=== PATIENT | male | born 1960 | race Caucasian/White ===

== ENCOUNTER 2020-12-20 08:11 | Outpatient (REF) | payer BC, SELFPAY ==
[2020-12-20 09:06] LABS: Glucose Urine UA NEG (NEG); Leukocyte Esterase Urine NEG (NEG); Nitrite Urine NEG (NEG); PH 5.5 (5.0-8.0); Specific Gravity - Urine >= 1.030 (1.005-1.025); Urine Blood NEG (NEG); Urine Ketones NEG (NEG); Urine Protein NEG (NEG-TRACE)
[2020-12-20 09:09] LABS: Appearance Urine HAZY; Color Urine YELLOW
[2020-12-20 09:12] LABS: Hematocrit 43.5 % (42-52); Mean Corpuscular HGB Conc 34.5 g/dl (31.0-36.0); Mean Corpuscular Hemoglobin 31.7 pg (27.0-33.0); Mean Platelet Volume 10.7 fL (9.4-12.4); Platelet Count 225 X10*3/uL (160-400); Red Blood Count 4.73 X10*6/uL (4.60-5.80); Red Cell Distribution Width 12.4 % (11.0-16.0); White Blood Count 6.4 X10*3/uL (4.8-10.8)
[2020-12-20 09:26] LABS: Alanine Aminotransferase 33 U/L (0-40); Albumin Level 4.4 g/dL (3.5-5.0); Alkaline Phosphatase 87 U/L (39-117); Anion Gap 12 (12-20); Aspartate Amino Transferase 23 U/L (5-37); Bilirubin Total 0.6 mg/dL (0.0-1.0); Blood Urea Nitrogen 17 mg/dL (9-16); Calcium 8.6 mg/dL (8.4-10.2); Carbon Dioxide 28 mmol/L (22-29); Chloride 107 mmol/L (96-108); Cholesterol 224 mg/dL; Estimated Glomerular Filt Rate > 60; Glucose Fasting 116 mg/dL (60-99); HDL Cholesterol 48 mg/dL; LDL Cholesterol Calculated 156 mg/dl; Potassium 4.5 mmol/L (3.3-5.1); Sodium 142 mmol/L (135-145); Total Protein 6.7 g/dL (6.5-8.0); Triglycerides 101 mg/dL
[2020-12-20 09:46] LABS: Estimated Average Glucose 120 mg/dL; Hemoglobin A1c % 5.8 %
[2020-12-20 09:58] LABS: Prostate Specific Antigen 0.13 ng/mL (<0.05-4.0)
[2020-12-20 18:32] LABS: MANUAL DIFF FLAG NO
[2020-12-20 18:35] LABS: Basophils Absolute Auto 0.1 X10*3/uL (0.0-0.2); Basophils Percent Auto 1.4 % (0-2); Eosinophils Absolute Auto 0.5 X10*3/uL (0.0-0.4); Eosinophils Percent Auto 7.1 % (0-4); Imm Gran Abs Auto 0.03 X10*3/uL (0.00-0.03); Imm Gran Pct Auto 0.5 % (0.0-0.4); Lymphocytes Percent Auto 29.9 % (20-40); Monocytes Absolute Auto 0.6 X10*3/uL (0.1-1.2); Monocytes Percent Auto 8.4 % (2-11); Neutrophils Absolute Auto 3.4 X10*3/uL (2.0-8.3); Neutrophils Percent Auto 52.7 % (45-73)
== END 2020-12-20 08:12 | disposition home or self-care (01) ==
LOC: HO.LAB 08:11
PROVIDERS: PCP Internal Medicine; Visit Provider Internal Medicine
DX: Z00.00 Encounter for general adult medical examination without abnormal findings (principal); R73.9 Hyperglycemia, unspecified; N40.0 Benign prostatic hyperplasia without lower urinary tract symptoms
CPT/HCPCS: 36415; 80053; 80061; 81003; 83036; 84153; 85025; 85027

== ENCOUNTER → 2021-03-30 08:34 | Outpatient (BNVA) | payer BC, SELFPAY | PROVIDERS: PCP Internal Medicine; Visit Provider Urology ==

== ENCOUNTER 2021-05-11 15:00 | Outpatient (REF) | payer BC, SELFPAY ==
[2021-05-11 15:07] LABS: MANUAL DIFF FLAG NO
[2021-05-11 15:13] LABS: Basophils Absolute Auto 0.1 X10*3/uL (0.0-0.2); Basophils Percent Auto 1.1 % (0-2); Eosinophils Absolute Auto 0.5 X10*3/uL (0.0-0.4); Hematocrit 42.9 % (42-52); Hemoglobin 14.7 g/dl (14.0-18.0); Imm Gran Abs Auto 0.02 X10*3/uL (0.00-0.03); Imm Gran Pct Auto 0.3 % (0.0-0.4); Lymphocytes Absolute Auto 1.9 X10*3/uL (1.2-4.9); Lymphocytes Percent Auto 30.1 % (20-40); Mean Corpuscular HGB Conc 34.3 g/dl (31.0-36.0); Mean Corpuscular Hemoglobin 31.5 pg (27.0-33.0); Mean Corpuscular Volume 92.1 fL (80-98); Mean Platelet Volume 11.5 fL (9.4-12.4); Monocytes Absolute Auto 0.5 X10*3/uL (0.1-1.2); Monocytes Percent Auto 7.3 % (2-11); Neutrophils Absolute Auto 3.5 X10*3/uL (2.0-8.3); Neutrophils Percent Auto 54.2 % (45-73); Platelet Count 223 X10*3/uL (160-400); Red Blood Count 4.66 X10*6/uL (4.60-5.80); Red Cell Distribution Width 12.8 % (11.0-16.0); White Blood Count 6.4 X10*3/uL (4.8-10.8)
[2021-05-11 15:53] LABS: Thyroid Stimulating Hormone 2.32 uIU/mL (0.32-4.0)
[2021-05-12 08:41] LABS: Lyme Abs Screen <0.90 index
[2021-05-22 11:37] LABS: Babesia IgG <1:64 titer (<1:64); Babesia IgM <1:20 titer (<1:20)
[2021-05-30 01:37] LABS: A. Phagocytophilum Ab IgG <1:64 (<1:64); A. Phagocytophilum Ab IgM <1:20 (<1:20); E. Chaffeensis Ab IgG <1:64 (<1:64); E. Chaffeensis Ab IgM <1:20 (<1:20)
== END 2021-05-11 15:01 | disposition home or self-care (01) ==
LOC: HO.LNP 15:00
PROVIDERS: Visit Provider Internal Medicine
DX: M25.522 Pain in left elbow (principal); M79.10 Myalgia, unspecified site
CPT/HCPCS: 84443; 85025; 86617; 86618; 86666; 86753

== ENCOUNTER 2021-12-29 11:43 | Outpatient (REF) | payer BC, SELFPAY ==
[2021-12-29 11:47] LABS: MANUAL DIFF FLAG NO
[2021-12-29 12:23] LABS: Basophils Absolute Auto 0.1 X10*3/uL (0.0-0.2); Basophils Percent Auto 1.6 % (0-2); Eosinophils Absolute Auto 0.7 X10*3/uL (0.0-0.4); Eosinophils Percent Auto 12.1 % (0-4); Hematocrit 43.2 % (42.0-52.0); Hemoglobin 14.5 g/dl (14.0-18.0); Imm Gran Abs Auto 0.01 X10*3/uL (0.00-0.03); Imm Gran Pct Auto 0.2 % (0.0-0.4); Lymphocytes Absolute Auto 1.7 X10*3/uL (1.2-4.9); Lymphocytes Percent Auto 29.2 % (20-40); Mean Corpuscular HGB Conc 33.6 g/dl (31.0-36.0); Mean Corpuscular Hemoglobin 30.9 pg (27.0-33.0); Mean Corpuscular Volume 92.1 fL (80.0-98.0); Mean Platelet Volume 11.4 fL (9.4-12.4); Monocytes Absolute Auto 0.4 X10*3/uL (0.1-1.2); Monocytes Percent Auto 7.6 % (2-11); Neutrophils Absolute Auto 2.9 x10*3/uL (2.0-8.3); Neutrophils Percent Auto 49.3 % (45-73); Platelet Count 216 X10*3/uL (160-400); Red Blood Count 4.69 X10*6/uL (4.60-5.80); Red Cell Distribution Width 12.8 % (11.0-16.0); White Blood Count 5.8 X10*3/uL (4.8-10.8)
[2021-12-29 12:40] LABS: Alanine Aminotransferase 31 U/L (0-40); Albumin Level 4.2 g/dL (3.5-5.0); Alkaline Phosphatase 81 U/L (39-117); Anion Gap 10 (12-20); Aspartate Amino Transferase 23 U/L (5-37); Bilirubin Total 0.7 mg/dL (0.0-1.0); Blood Urea Nitrogen 20 mg/dL (9-16); Calcium 8.9 mg/dL (8.4-10.2); Carbon Dioxide 25 mmol/L (22-29); Chloride 108 mmol/L (96-108); Cholesterol 197 mg/dL; Estimated Glomerular Filt Rate > 60; Glucose Fasting 126 mg/dL (60-99); HDL Cholesterol 43 mg/dL; LDL Cholesterol Calculated 135 mg/dl; Sodium 139 mmol/L (135-145); Total Protein 6.4 g/dL (6.5-8.0); Triglycerides 96 mg/dL
[2021-12-29 12:49] LABS: Appearance Urine CLEAR; Color Urine YELLOW; Glucose Urine UA NEG (NEG); Leukocyte Esterase Urine NEG (NEG); Nitrite Urine NEG (NEG); PH 5.5 (5.0-8.0); Specific Gravity - Urine >= 1.030 (1.005-1.025); Urine Blood NEG (NEG); Urine Ketones NEG (NEG); Urine Protein NEG (NEG-TRACE)
[2021-12-29 13:01] LABS: PSA,Total (Free>4and<10) 0.14 ng/mL (0.00-4.00)
[2022-01-05 14:16] LABS: Testosterone, Free 50.2 pg/mL (35.0-155.0); Testosterone, Total 290 ng/dL (250-1100)
== END 2021-12-29 11:44 | disposition home or self-care (01) ==
LOC: HO.LNP 11:43
PROVIDERS: Visit Provider Internal Medicine
DX: Z00.00 Encounter for general adult medical examination without abnormal findings (principal); Z12.5 Encounter for screening for malignant neoplasm of prostate; N40.0 Benign prostatic hyperplasia without lower urinary tract symptoms; E34.9 Endocrine disorder, unspecified
CPT/HCPCS: 80053; 80061; 81003; 84153; 84402; 84403; 85025

== ENCOUNTER 2022-05-17 10:10 | Outpatient (REF) | payer BC, SELFPAY ==
--- NOTE | ~2022-05-17 | XR_ITS ---
EXAMINATION: XR CHEST CLINICAL INFORMATION: Chronic cough COMPARISON: Previous chest x-ray December 2007 TECHNIQUE: 2 views of the chest were obtained. FINDINGS: The cardiac silhouette does not appear enlarged. There is change in contour of the paraspinal line questionable for tortuosity or mild ectasia of the descending thoracic aorta versus posterior mediastinal etiology. Hilar and mediastinal contours are otherwise unremarkable. The lungs are clear. There is no pleural effusion or pneumothorax. There are degenerative changes of the spine. XR/XR chest 2V IMPRESSION: Changing contour of the paraspinal line, question representing tortuosity or ectasia of the descending thoracic aorta versus posterior mediastinal etiology. This could be further evaluated with chest CT if clinically indicated.
== END 2022-05-17 10:11 | disposition home or self-care (01) ==
LOC: HO.XRAY 10:10
PROVIDERS: PCP Internal Medicine; Visit Provider Internal Medicine
DX: R05.3 Chronic cough (principal)
CPT/HCPCS: 71046

== ENCOUNTER 2022-11-02 11:14 | Outpatient (REF) | payer BC, SELFPAY ==
[2022-11-02 13:47] LABS: Estimated Average Glucose 111 mg/dL; Hemoglobin A1c % 5.5 %
[2022-11-02 14:41] LABS: Anion Gap 12 (12-20); Blood Urea Nitrogen 17 mg/dL (9-16); Calcium 9.2 mg/dL (8.4-10.2); Carbon Dioxide 26 mmol/L (22-29); Chloride 107 mmol/L (96-108); Estimated Glomerular Filt Rate > 60; Glucose Random 105 mg/dL (60-115); Potassium 4.3 mmol/L (3.3-5.1); Sodium 141 mmol/L (135-145)
== END 2022-11-02 11:15 | disposition home or self-care (01) ==
LOC: HO.10HDL 11:14
PROVIDERS: Visit Provider Internal Medicine
DX: R73.03 Prediabetes (principal)
CPT/HCPCS: 36415; 80048; 83036

== ENCOUNTER 2023-05-13 11:34 | Outpatient (REF) | payer BC, SELFPAY | END 2023-05-13 11:35 | disposition home or self-care (01) | LOC: HO.LNP 11:34 | PROVIDERS: Visit Provider Internal Medicine | DX: Z00.00 Encounter for general adult medical examination without abnormal findings (principal); Z12.5 Encounter for screening for malignant neoplasm of prostate; N40.0 Benign prostatic hyperplasia without lower urinary tract symptoms; E34.9 Endocrine disorder, unspecified | CPT/HCPCS: 80053; 80061; 81001; 84153; 85025 ==

== ENCOUNTER 2024-05-18 11:36 | Outpatient (REF) | payer BC, SELFPAY ==
[2024-05-18 11:40] LABS: MANUAL DIFF FLAG NO
[2024-05-18 11:54] LABS: Basophils Absolute Auto 0.1 X10*3/uL (0.0-0.2); Basophils Percent Auto 0.9 % (0-2); Eosinophils Absolute Auto 0.3 X10*3/uL (0.0-0.4); Eosinophils Percent Auto 5.2 % (0-4); Hematocrit 42.2 % (42.0-52.0); Hemoglobin 14.3 g/dl (14.0-18.0); Imm Gran Abs Auto 0.02 X10*3/uL (0.00-0.03); Imm Gran Pct Auto 0.3 % (0.0-0.4); Lymphocytes Absolute Auto 2.1 X10*3/uL (1.2-4.9); Lymphocytes Percent Auto 35.9 % (20-40); Mean Corpuscular HGB Conc 33.9 g/dl (31.0-36.0); Mean Corpuscular Hemoglobin 31.7 pg (27.0-33.0); Mean Corpuscular Volume 93.6 fL (80.0-98.0); Mean Platelet Volume 11.5 fL (9.4-12.4); Monocytes Absolute Auto 0.5 X10*3/uL (0.1-1.2); Monocytes Percent Auto 8.2 % (2-11); Neutrophils Absolute Auto 2.8 x10*3/uL (2.0-8.3); Neutrophils Percent Auto 49.5 % (45-73); Platelet Count 200 X10*3/uL (160-400); Red Blood Count 4.51 X10*6/uL (4.60-5.80); Red Cell Distribution Width 12.9 % (11.0-16.0); White Blood Count 5.7 X10*3/uL (4.8-10.8)
[2024-05-18 11:57] LABS: Appearance Urine Clear; Color Urine Dark Yellow; Glucose Urine UA Negative (Negative); Leukocyte Esterase Urine Negative (Negative); Nitrite Urine Negative (Negative); PH 5.5 (5.0-9.0); Specific Gravity - Urine >= 1.030 (1.005-1.025); Urine Blood Negative (Negative); Urine Ketones Trace mg/dL (Negative); Urine Protein Negative (Neg-Trace)
[2024-05-18 12:02] LABS: Bacteria Urine None Seen (None Seen); Hyaline Casts Urine 0-2 /LPF (0-2); RBC Urine 0-2 /HPF (0-2); Squamous Epithelial Cell Urine 0-2 /HPF (0-2); WBC Urine 0-5 /HPF (0-5)
[2024-05-18 12:08] LABS: Alanine Aminotransferase 30 U/L (0-40); Albumin Level 4.2 g/dL (3.5-5.0); Alkaline Phosphatase 84 U/L (39-117); Anion Gap 13 (12-20); Aspartate Amino Transferase 21 U/L (5-37); Bilirubin Total 0.7 mg/dL (0.0-1.0); Blood Urea Nitrogen 20 mg/dL (9-16); Calcium 8.7 mg/dL (8.4-10.2); Carbon Dioxide 26 mmol/L (22-29); Chloride 106 mmol/L (96-108); Cholesterol 189 mg/dL (<200); Estimated Glomerular Filt Rate > 60; Glucose Fasting 115 mg/dL (60-99); HDL Cholesterol 46 mg/dL (>40); LDL Cholesterol Calculated 115 mg/dL (<100); Potassium 3.6 mmol/L (3.3-5.1); Sodium 141 mmol/L (135-145); Total Protein 6.6 g/dL (6.5-8.0); Triglycerides 141 mg/dL (<150)
[2024-05-18 12:26] LABS: PSA,Total (Free>4and<10) 0.14 ng/mL (0.00-4.00)
[2024-05-22 20:03] LABS: Testosterone, Total 351 ng/dL (250-1100)
== END 2024-05-18 11:37 | disposition home or self-care (01) ==
LOC: HO.LNP 11:36
PROVIDERS: Visit Provider Internal Medicine
DX: Z00.00 Encounter for general adult medical examination without abnormal findings (principal); N40.0 Benign prostatic hyperplasia without lower urinary tract symptoms; E34.9 Endocrine disorder, unspecified; Z12.5 Encounter for screening for malignant neoplasm of prostate
CPT/HCPCS: 80053; 80061; 81001; 84153; 84402; 84403; 85025

== ENCOUNTER 2024-06-18 12:00 | Outpatient (REF) | payer BC, SELFPAY ==
--- NOTE | ~2024-06-18 | XR_ITS ---
EXAMINATION: XR SHOULDER, RIGHT CLINICAL INFORMATION: Pain and unspecified shoulder. COMPARISON: None available. TECHNIQUE: AP external rotation, Grashey, and axillary views of the right shoulder. FINDINGS: -The bones and soft tissues are normal. No fracture. Glenohumeral and acromioclavicular alignment is anatomic with normal joint space. Mild arthritis noted in the AC joint. Minimal degenerative arthritis noted glenohumeral joint. -Neutral acromion. Preserved subacromial space. -Soft tissues appear normal. No calcifications. XR/XR shoulder RT min 2V IMPRESSION: 1. No acute findings right shoulder. 2. Mild arthritis glenohumeral and AC joint. Electronically signed by: Jm Cruz MD 08/10/2024 03:37 PM EDT
== END 2024-06-18 12:01 | disposition home or self-care (01) ==
LOC: HO.HOSX 12:00
PROVIDERS: Visit Provider Orthopaedic Surgery
DX: M75.51 Bursitis of right shoulder (principal)
CPT/HCPCS: 73030

== ENCOUNTER 2024-06-18 13:40 | Outpatient (AMB) | payer BC, SELFPAY ==
--- NOTE | 2024-06-18 13:57 | MHC.OFFVIS ---
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 Patient reports that he has had ongoing shoulder pain for about 3 weeks now. Denies any injury. His pain is felt with lateral raising above the shoulder and some mild pain with lifting. He does ot have symptoms when raiding the arm in the front or back of the body. Denies numbness and tingling. He will occasionally take Ibuprofen, Allergies ENVIROMENTAL Allergy (Mild, Uncoded 01/13/22 11:58) HAYFEVER animal fur Allergy (Unknown, Uncoded 01/13/22 11:58) sore throat pollen Allergy (Unknown, Uncoded 01/13/22 11:58) sneezing HPI HPI PR MANAGER- Rt shoulder, rotator cuff pain: Details: This is a 64 yo with ~ 3 week history of right shoulder pain. He denies injury. He states he has pain aith reaching and occasionally at night. He localizes the pain to his right subdeltoid region. He is RHD. PFSH Medical History (Updated 06/19/24 @ 09:18 by Dru Alicea MD) Hypogonadism in male BPH w/o urinary obs/LUTS History of kidney stones Surgical History (Updated 06/27/23 @ 12:07 by GIANLUCA Garrison) Hx of colonoscopy Family History (Updated 06/27/23 @ 12:02 by GIANLUCA Garrison) Father No problems noted. Mother Alzheimer disease Social History (Updated 06/18/24 @ 14:06 by Eileen Hernandez [facility]) Alcohol intake: never Patient Tobacco Use Status: Never used Tobacco Substance Use Type: Caffiene Current occupational status: employed Current occupation: Corporate Representative Physical Exam Extrem Other: Full ROM neg EC + Vásquez/Neer Results Reviewed Results Reviewed: I personally reviewed relevant radiographs. Very mild GH OA, otherwise unremarkable Assessment & Plan Assessment & Plan (1) Shoulder bursitis: Code(s): M75.50 - Bursitis of unspecified shoulder Category: Medical Plan: 64 yo with atraumatic shoulder pain. Signs and symptoms of bursitis. PT. Injections discussed but deferred. Orders: Orders PT Evaluation and Treatment Today M75.50 - Bursitis of unspecified shoulder XR shoulder RT min 2V 06/18/24 M25.519 - Pain in unspecified shoulder Coding Level of Care Code New Pt Level 3 (74005) Diagnoses Shoulder bursitis M75.50
== END 2024-06-18 14:11 | disposition home or self-care (01) ==
PROVIDERS: PCP Internal Medicine; Visit Provider Orthopaedic Surgery
DX: M75.50 Bursitis of unspecified shoulder (principal)
CPT/HCPCS: 99203

== ENCOUNTER → 2024-06-18 13:44 | Outpatient (BNV) | payer BC, SELFPAY | PROVIDERS: Visit Provider Radiology Diagnostic Radiology | DX: M19.011 Primary osteoarthritis, right shoulder (principal); M25.511 Pain in right shoulder | CPT/HCPCS: 73030 ==

== ENCOUNTER 2024-07-16 13:45 | Outpatient (RCR) | payer BC, SELFPAY ==
--- NOTE | 2024-07-16 14:34 | MHC.PT.EP ---
[facility] [place] Office [place] Office [place] Office [address] [phone] F: [phone] F: [phone] F: [phone] F: [phone] Physical Therapy Plan of Care Date of Evaluation: 07/16/24 Date of Surgery: Diagnosis: bursitis of R shoulder Assessment: Patient is a 64 year old R handed male who presents with s/s consistent with R shoulder pain. He works with daily job demands including. Patient past medical history includes hypogonadism and kidney stones. Current impairments include pain, posture, ROM, strength, activity tolerance and functional mobility. Functional limitations include decreased ability to sleep, reach, lift, carry and dress. Patient is motivated with good rehab potential. Skilled PT will address impairments and functional limitations in order to achieve goals. Frequency and Duration: The patient will be seen 2x/week for 5 weeks Short Term Goals: I with HEP - 2 weeks AROM full and WNL - 3 weeks Able to sleep pain free - 3 weeks Penitentiary Goals: SPADI 8/130 or better -5 weeks Pain free with all activities - 5 weeks Able to carry 10# and reach to high shelf pain free - 5 weeks Shoulder strength 4+/5 grossly - 5 weeks Treatment Plan: Modalities to reduce pain, spasms and effusion. Manual therapy to restore motion and function. Therapeutic exercise to improve strength and flexibility. Neuromuscular re-education for posture and balance. Therapeutic activities to return to functional activities of daily living. Electronically signed by: Santiago Martinez, PT Please sign and return to therapist. Thank you for your referral.
--- NOTE | 2025-01-29 10:48 | MHC.PT.DC ---
[facility] [place] Office [place] Office [place] Office [address] [phone] F: [phone] F: [phone] F: [phone] F: [phone] Physical Therapy Discharge Report Diagnosis: bursitis of R shoulder Date of Surgery: Date of Evaluation: 07/16/24 Date of Discharge: Treatments to Date: 1 Cancellations to Date: No Shows to Date: Discharge Status: Patient Elected to Stop Discharge Summary: Patient is a 64 year old R handed male who presents with s/s consistent with R shoulder pain. He works with daily job demands including. Patient past medical history includes hypogonadism and kidney stones. Current impairments include pain, posture, ROM, strength, activity tolerance and functional mobility. Functional limitations include decreased ability to sleep, reach, lift, carry and dress. Patient is motivated with good rehab potential. Skilled PT will address impairments and functional limitations in order to achieve goals. Electronically signed by: Santiago Martinez, PT Please sign and return to therapist. Thank you for your referral.
== END 2025-01-29 10:48 | disposition home or self-care (01) ==
LOC: HO.PTCHIC 13:45
PROVIDERS: PCP Internal Medicine; Visit Provider Orthopaedic Surgery
DX: M75.50 Bursitis of unspecified shoulder (principal)
CPT/HCPCS: 97110; 97162

== ENCOUNTER 2024-10-26 16:12 | Outpatient (REF) | payer BC, SELFPAY ==
--- OUTSIDE RECORDS SUMMARY | 2024-10-26 16:14 | XMS_ITS ---
Author Organization Jong Brito MD Address [address] [place], [place] [id number] Care Team Providers Care Health Education Coordinator Name Role Phone Jong Brito Primary Care Provider [phone] ALLERGIES No Known Allergies RESULTS Component Value Reference Range Notes Occult Blood, Stool, Guaiac Reviewed date:05/25/2024 03:12:23 PM Interpretation:Negative Performing Lab: Notes/Report: Negative Occult Blood, Stool, Guaiac Neg REASON FOR REFERRAL Reason dysfuncton of right rotator cuff ins ref needed Diagnosis 1 Dysfunction of right rotator cuff (M67.911) Referral Organization Jong Brito MD Referring Provider First Name Jong Referring Provider Last Name Alisha Referring Provider Speciality Internal M edicine Referred Provider Dru Alicea Referred Provider Specialty Orthopedic S urgery General Notes Moraima Jacob 10:45:58 AM EDT > info faxedPamela Patti A 06/15/2024 03:29:15 PM EDT > THE APPT IS SCHEDULED FOR 07/04 AT 2 . THE / INSURANCE REFERRAL HAS BEEN FAXED8Pamela Patti A 06/19/2024 11:00:54 AM EDT > OFFICE NOTES RECD FROM ORTHO Referral Priority Routine Referral Appointment Date 06/18/2024 REASON FOR VISIT annual visit, decreased ROM right arm x 2 weeks MEDICATIONS Medication SIG (Take, Route, Frequency, Duration) Notes Start Date End Date Status Viagra 100 MG 1 tablet as needed Orally Once a day for 30 days Not-Taking Triamcinolone Acetonide 0.5 % 1 application Externally Two times a Week for 30 days 04/20/2022 Active Tamsulosin HCl 0.4 MG TAKE 2 CAPSULES ON CE DAILY for 90 Active SOCIAL HISTORY Tobacco Use: Social History Observation Description Date Details (start date - stop date) Never Smoker NA - NA Sex Assigned At : Social History Observation Description Sex Assigned At Unknown Tobacco Use/Smoking Question Answer Notes Patient is a nonsmoker Additional Findings: Tobacco Non-User Cu rrent non-smoker, currently using no form of tobacco Alcohol Screen Question Answer Notes Did you have a drink contain ing alcohol in the past year? Yes How often did you have a dri nk containing alcohol in the past year? Monthly or less (1 point) How many drinks did you have on a typical day when you were drinking in the past year? 1 or 2 drinks (0 point) How often did you have 6 or more drinks on one occasion in the past year? Never (0 point) Points 1 Interpretation Negative PROBLEMS Problem Type ICD Code Onset Dates Problem Status W/U Status Risk SNOMED Code Notes Problem Neuropathy (G62.9) Active confirmed 178536821 VITAL SIGNS BMI 30.87 kg/m2 05/25/2024 Blood pressure systolic 110 mm Hg 05/25/20 24 Blood pressure diastolic 70 mm Hg 024 Height 73 in 05/25/2024 Weight 234 lbs 05/25/2024 weight is up 17 pounds since 05-20-23 Encounters Encounter Location Date Provider Diagnosis Jong Brito MD [address] [place] [id number] 05/25/2024 Jong Brito Dysfunction of right rotator cuff M67.911 ; Annual physical exam Z00.00 ; Neuropathy G62.9 ; Prediabetes R73.03 ; Prostatism N40.0 ; Colon cancer screening Z12.11 and Encounter for screening for depression Z13.31 ASSESSMENTS Encounter Date Diagnosis Assessment Notes Treatment Notes Treatment Clinical Notes 05/25/2024 Dysfunction of right rotator cuff (ICD-10 - M67.911) refer to ortho 05/25/2024 Annual physical exam (ICD-10 - Z00.00) labs reviewed and discussed with patient 05/25/2024 Neuropathy (ICD-10 - G62.9) advised diet 05/25/2024 Prediabetes (ICD-10 - R73.03) advised to diet and exercise 05/25/2024 Prostatism (ICD-10 - N40.0) stable, will continue to monitor 05/25/2024 Colon cancer screening (ICD-10 - Z12.11) guaiac negative 05/25/2024 Encounter for screening for depression (ICD-10 - Z13.31) negative screen PLAN OF TREATMENT Treatment Notes Assessment Notes Dysfunction of right rotator cuff refer to ortho Annual physical exam labs reviewed and d iscussed with patient Neuropathy advised diet Prediabetes advised to diet and exercise Prostatism stable, will continu e to monitor Colon cancer screening guaiac negative Encounter for screening for depression n egative screen Referrals Referral Date Details 06/18/2024 06/18/2024, dysfunct on of right rotator cuff ins ref needed , Dru Alicea Next Appt Details Provider Name:Jong johnson, 05/20/2025 08:00:00 AM, [address] [place] [address], [address] [place] [address], [phone], Provider Name:Jong johnson, 05/27/2025 02:30:00 PM, [address] [place] [address], [address], [place], [place], [phone], Progress Notes * Examination Category Sub-Category Detail Notes General Examination GENERAL APPEARANCE: well dev eloped, well nourished, in no acute distress HEAD: normocephalic, atrau matic EYES: pupils equal, round, reactive to light and accommodation, sclera non- icteric EARS: normal THROAT: clear NECK/THYROID: neck supple, full ra nge of motion, no cervical lymphadenopathy, no bruits HEART: regular rate and rhy thm, S1, S2 normal, no murmurs LUNGS: clear to auscultatio n bilaterally ABDOMEN: soft, nontender, non distended, bowel sounds present, normal, no organomegaly , no masses palpable NEUROLOGIC: nonfocal, motor stre ngth normal upper and lower extremities, sensory exam intact SKIN: warm and dry, no klever picious lesions EXTREMITIES: no clubbing, cyanosi s, or edema MALE GENITOURINARY: circumcised no penil e lesions or discharge testes descended bilaterally no testicular mass RECTAL EXAM: normal tone, no exte rnal hemorrhoids, no masses palpable, prostate normal, stool guaiac negative ORAL CAVITY: mucosa moist History and Physical Notes * HPI (History of Present Illness) Category Sub-Category Detail Notes Depression Screening PHQ-9 Little inte rest or pleasure in doing things: Not at all Feeling down, depressed, or hopeless: No t at all Trouble falling or staying asleep, or sl eeping too much: Not at all Feeling tired or having little energy: N ot at all Poor appetite or overeating: Not at all Feeling bad about yourself o r that you are a failure, or have let yourself or your family down: Not at all Trouble concentrating on thi ngs, such as reading the newspaper or watching television: Not at all Moving or speaking so slowly that other people could have noticed; or the opposite, being so fidgety or restless that you have been moving around a lot more than usual: Not at all Thoughts that you would be b tuan off or of hurting yourself in some way: Not at all Total Score: 0 Interpretation and Intervention Depression Tim almeida Findings: Negative Follow-Up for Depression: : review of PH Q-9 found negative result, no follow-up needed SDOH Questions SDOH Questions In the past year have you been worried about losing housing?: No In the past year have you or any family members you live with been unable to get any of the following when it was really needed? Check all that apply:: None Communication Needs Communication Needs Does the patient have a hearing impairment: No Does the patient have a vision impairmen t?: Yes ?If yes, what is the vision impairment?: Glasses Consultation Request Notes Referral Date Referring Provider Referred Provider Not leonel 05/25/2024 Jong Brito Noah dysfuncton of right rotator cuff ins ref needed
--- OUTSIDE RECORDS SUMMARY | 2024-10-26 16:14 | XMS_ITS ---
Author Organization Jong Brito MD Address [address] [place] [phone] Care Team Providers Care Customer Facilities Supervisor Name Role Phone Jong Brito Primary Care Provider [phone] REASON FOR VISIT referral Encounters Encounter Location Date Provider Diagnosis Jong Brito MD [address] [place] [address] [place] [phone] 06/29/2024 Jong Brito PLAN OF TREATMENT Next Appt Details Provider Name:Jong johnson, 05/20/2025 08:00:00 AM, [address] [place] [address], [address], [place], [place], [phone], Provider Name:Jong johnson, 05/27/2025 02:30:00 PM, [address] [place] [address], [address], [place], [place], [phone],
--- OUTSIDE RECORDS SUMMARY | 2024-10-26 16:14 | XMS_ITS ---
Author Organization Jong Brito MD Address [address] [place] [phone] Care Team Providers Care Bead Builder Name Role Phone Jong Brito Primary Care Provider ALLERGIES No Known Allergies REASON FOR VISIT cough x 1 month, c/o cough and runny nose x 1 month, Video [phone] MEDICATIONS Medication SIG (Take, Route, Frequency, Duration) Notes Start Date End Date Status Triamcinolone Acetonide 0.5 % 1 application Externally Two times a Week for 30 days 04/20/2022 Active Tamsulosin HCl 0.4 MG TAKE 2 CAPSULES ON CE DAILY for 90 Active Zithromax Z-David 250 MG 2 tablet on the irst day, then 1 tablet daily for 4 days Orally Once a day for 5 day(s) 10/23/2024 Active Viagra 100 MG 1 tablet as needed Orally Once a day for 30 days Not-Taking VITAL SIGNS BMI 30.34 kg/m2 10/23/2024 Height 73 in 10/23/2024 Weight 230 lbs 10/23/2024 weight is 230 BP not taken a t home no temp Encounters Encounter Location Date Provider Diagnosis Jong Brito MD [address] [place] [phone] 10/23/2024 Jong Brito Persistent cough R05.3 ASSESSMENTS Encounter Date Diagnosis Assessment Notes Treatment Notes Treatment Clinical Notes 10/23/2024 Persistent cough (ICD-10 - R05.3) patient verbalized understanding of medicationand directions for use, pending diagnostic testing/ [place] [facility] [place]AN [place] TREATMENT Medication Medication Name Sig Start Date Stop Date Notes Zithromax Z-David 250 MG 2 tablet on the f irst day, then 1 tablet daily for 4 days Orally Once a day for 5 day(s) 10/23/2024 Treatment Notes Assessment Notes Persistent cough patient verbalized u nderstanding of medicationand directions for use, pending diagnostic testing/ ORDER FAXED TO [facility] [facility] [place] REQUEST Pending Test Test Name Order Date XR CHEST 2 VIEW PA & LAT 10/23/2024 Next Appt Details Provider Name:Jongwhit Arguello ier, 05/20/2025 08:00:00 AM, [address] [place] [address], [address], [place], [place], [phone], Provider Name:Jong Arguello ier, 05/27/2025 02:30:00 PM, [address] [place] [address], [address], [place], [place], [phone], Progress Notes * Examination Category Sub-Category Detail Notes General Examination GENERAL APPEARANCE: alert, w ell hydrated, in no distress History and Physical Notes * HPI (History of Present Illness) Category Sub-Category Detail Notes Symptom(s) Telehealth Location of prov ider rendering services:: [address], [address] Location of patient:: other (please spec nella) at work in [place] Patient identification confi rmed using:: Name, , SSN, Insurance information Telehealth method:: Video co nference where patient is visible to the provider of care Consent:: Patient verbally c onsented to treatment, Patient verbally consented to billing insurance company, Patient informed of any privacy concerns related to method of visit
--- OUTSIDE RECORDS SUMMARY | 2024-10-26 16:14 | XMS_ITS | Patient Health Record ---
Author Organization Jong Brito MD Address [address] [place], [place] [id number] Care Team Providers Care Assessment Technician Name Role Phone Jong Brito Primary Care Provider [phone] ALLERGIES No Known Allergies RESULTS Component Value Reference Range Notes Hold Lav - Possible Hematolo gy Reviewed date:05/18/2024 12:18:59 PM Interpretation: Performing Lab:[facility], [address] [place] [phone] Notes/Report: Hold Lav - Possible Hematology SEE NOTE Specimen will be held untested for 8 hours. Call Hematology if testing is desired. Complete Blood Count Auto Di ff Reviewed date:05/18/2024 12:48:22 PM Interpretation: Performing Lab:[facility], [address] [place] [phone] Notes/Report: White Blood Count 5.7 4.8-10.8 X10*3/uL Red Blood Count 4.51 4.60-5.80 X10*6/uL Hemoglobin 14.3 14.0-18.0 g/dl Hematocrit 42.2 42.0-52.0 % Mean Corpuscular Volume 93.6 80.0-98.0 fL Mean Corpuscular Hemoglobin 31.7 27.0-33.0 pg Mean Corpuscular HGB Conc 33.9 31.0-36.0 g/dl Red Cell Distribution Width 12.9 11.0-16.0 % Platelet Count 200 160-400 X10*3/uL Mean Platelet Volume 11.5 9.4-12.4 fL Neutrophils Percent Auto 49.5 45-73 % Imm Gran Pct Auto 0.3 0.0-0.4 % Lymphocytes Percent Auto 35.9 20-40 % Monocytes Percent Auto 8.2 2-11 % Eosinophils Percent Auto 5.2 0-4 % Basophils Percent Auto 0.9 0-2 % NRBC Pct Auto 0.0 0.0-0.2 /100WBC Neutrophils Absolute Auto 2.8 2.0-8.3 x10*3/u L Imm Gran Abs Auto 0.02 0.00-0.03 X10*3/uL Lymphocytes Absolute Auto 2.1 1.2-4.9 X10*3/u L Monocytes Absolute Auto 0.5 0.1-1.2 X10*3/uL Eosinophils Absolute Auto 0.3 0.0-0.4 X10*3/u L Basophils Absolute Auto 0.1 0.0-0.2 X10*3/uL NRBC Abs Auto 0.000 0.0-0.012 X10*3/uL Comprehensive [place]. Panel Fa st Reviewed date:05/18/2024 12:47:45 PM Interpretation: Performing Lab:[facility], [address] [place] [phone] Notes/Report: Sodium 141 135-145 mmol/L Potassium 3.6 3.3-5.1 mmol/L Chloride 106 96-108 mmol/L Carbon Dioxide 26 22-29 mmol/L Anion Gap 13 12-20 Blood Urea Nitrogen 20 9-16 mg/dL Creatinine 0.85 0.5-1.4 mg/dL Estimated Glomerular Filt Rate > 60 NOTE: For -[place] individuals, multiply the result by 1.210. Chronic Kidney Disease: Estimated GFR < 60 mL/min/1.73m2 Severe Kidney Disease: Estimated GFR < 15 mL/min/1.73m2 Glucose Fasting 115 60-99 mg/dL A fasting glucose from 100-125 mg/dl is considered impaired (pre-diabetes). Calcium 8.7 8.4-10.2 mg/dL Bilirubin Total 0.7 0.0-1.0 mg/dL Aspartate Amino Transferase 21 5-37 U/L Alanine Aminotransferase 30 0-40 U/L Total Protein 6.6 6.5-8.0 g/dL Albumin Level 4.2 3.5-5.0 g/dL Alkaline Phosphatase 84 39-117 U/L Lipid Panel Reviewed date:05/18/2024 12:23:21 PM Interpretation: Performing Lab:[facility], [address] [place] [phone] Notes/Report: Triglycerides 141 <150 mg/dL Desirable Triglyceride: less than 150 mg/dL Borderline High Triglyceride 150-199 mg/dL High Triglyceride: 200-499 mg/dL Very High Triglyceride: greater than or equal to 5OO mg/dL Cholesterol 189 <200 mg/dL Desirable Cholesterol: less than 200 mg/dL Borderline High Cholesterol: 200-239 mg/dL High Cholesterol: greater than 239 mg/dL LDL Cholesterol Calculated 115 <100 mg/dL Desirable LDL: less than 100 mg/dL Near Optimal/Above Optimal LDL: 110-129 mg/dL Borderline High LDL: 130-159 mg/dL High LDL: 160-189 mg/dL Very High LDL: greater than or equal to 190 mg/dL HDL Cholesterol 46 >40 mg/dL Desirable HDL: greater than 40 mg/dL Note: This HDL assay may give artificially low results in patients with liver disease. PSA,Total (Free>4and<10) Reviewed date:05/18/2024 12:32:19 PM Interpretation: Performing Lab:[facility], [address] [place] [phone] Notes/Report: PSA,Total (Free>4and<10) 0.14 0.00-4.00 ng/mL A Free PSA was not performed: The percentage of Free PSA can be used to enhance the differentiation of prostate cancer from benign prostatic disease in subjects whose PSA levels are between 4.0 and 10.0 ng/mL. For subjects whose PSA levels are below 4.0 or above 10.0 ng/mL, the risk of prostate cancer is determined on the basis of the PSA alone. Therefore the % Free PSA is recommended only for those subjects whose PSA levels are between 4.0 and 10.0 ng/mL. PSA methodology: Cisse Alinity i Chemiluminescent Microparticle Immunoassay (CMIA) Testosterone, Free/Total Reviewed date:05/24/2024 01:29:09 PM Interpretation: Performing Lab:[facility], [address] [place] [phone] Notes/Report: Testosterone, Total 701 562-5657 ng/dL Men with clinically significant hypogonadal symptoms and testosterone values repeatedly in the range of the 200-300 ng/dL or less, may benefit from testosterone treatment after adequate risk and benefits counseling. For additional information, please refer to http://education.Airizu/faq/ TotalTestosteroneLCMSMSFA Q165 (This link is being provided for informational/ educational purposes only.) This test was developed and its analytical performance characteristics have been determined by [facility], [place]. It has not been cleared or approved by the U.S. Food and Drug Administration. This assay has been validated pursuant to the CLIA regulations and is used for clinical purposes. Testosterone, Free 47.0 35.0-155.0 pg/mL This test was developed and its analytical performance characteristics have been determined by [facility] [place] [place]. It has not been cleared or approved by the U.S. Food and Drug Administration. This assay has been validated pursuant to the CLIA regulations and is used for clinical purposes. THIS TEST WAS PERFORMED AT: [facility] [address] DANIELA VINCENT MD,PHD [facility]A [employer] w/rflx Cul t Reviewed date:05/18/2024 12:58:27 PM Interpretation: Performing Lab:[facility], [address] [place] [phone] Notes/Report: Urine, Clean Catch Color Urine Dark Yellow Appearance Urine Clear PH 5.5 5.0-9.0 Glucose Urine UA Negative Negative mg/dL Urine Blood Negative Negative Specific [place] - Urine >= 1.030 1.005-1.025 Urine Protein Negative Neg-Trace mg/dL Urine Ketones Trace Negative mg/dL Nitrite Urine Negative Negative Leukocyte Esterase Urine Negative Negative RBC Urine 0-2 0-2 /HPF WBC Urine 0-5 0-5 /HPF Squamous Epithelial Cell Urine 0-2 0-2 /HPF Bacteria Urine None Seen None Seen Hyaline Casts Urine 0-2 0-2 /LPF Occult Blood, Stool, Guaiac Reviewed date:05/25/2024 03:12:23 [...] Moraima Jacob 10:45:58 AM EDT > info faxed Razia Santiago 06/15/2024 03:29:15 PM EDT > THE APPT IS SCHEDULED FOR 07/04 AT 2 . THE / INSURANCE REFERRAL HAS BEEN FAXED8Pamela Patti A 06/19/2024 11:00:54 AM EDT > OFFICE NOTES RECD FROM ORTHO Referral Priority Routine Referral Appointment Date 06/18/2024 MEDICATIONS Medication SIG (Take, Route, Frequency, Duration) [...] Once a day for 30 days Not-Taking IMMUNIZATIONS Vaccine Route Administration Date Status Comme nts Flu Vaccine Unknown 08/02/2018 Administered pt was give n the vaccine at [facility] on [facility] Shingrix IM Intramuscular 04/20/2019 Administered pt was given the vaccine at [facility] in [place]. Shingrix IM Intramuscular 06/27/2019 Administered pt was given the vaccine at [facility] in [place]. Fluarix Quadrivalent ID Intradermal 06/27/2019 Administere d pt was given the vaccinea at [facility]. Fluarix Quadrivalent Unknown 06/18/2020 Administered Ashley diaz's Covid Vaccine Unknown 01/20/2021 Administered [facility] SARS-COV-2 Pfizer Unknown 01/20/2021 Administered Fluarix Quadrivalent IM Intramuscular 07/19/2023 Administe red SOCIAL HISTORY Tobacco Use: Social History Observation [...] W/U Status Risk SNOMED Code Notes Problem Erectile dysfunction due to diseases classified elsewhere (N52.1) Active confirmed 749019128 Problem Prostatism (N40.0) Active confirmed 57928564 Problem Testosterone deficiency (E34.9) Active confirmed 6453970895548 Problem BMI 32.0-32.9,adult (Z68.32) Active confirmed 042681638 Problem Abnormal chest xray (R93.89) Active confirmed Problem Neuropathy (G62.9) Active confirmed 306314473 VITAL SIGNS Blood pressure diastolic 70 mm Hg 05/25/2024 surinder ght is up 17 pounds since 05-20-23 Height 73 in 10/23/2024 weight is 230 B P not taken at home no temp Blood pressure systolic 110 mm Hg 05/25/2024 weig ht is up 17 pounds since 05-20-23 Weight 230 lbs 10/23/2024 weight is 230 B P not taken at home no temp BMI 30.34 kg/m2 10/23/2024 weight is 230 B P not taken at home no temp Encounters Encounter Location Date Provider Diagnosis Jong Brito MD [address] [place] [phone] 05/25/2024 Jong Brito Dysfunction of right rotator cuff M67.911 ; Annual physical exam Z00.00 ; Neuropathy G62.9 ; Prediabetes R73.03 ; Prostatism N40.0 ; Colon cancer screening Z12.11 and Encounter for screening for depression Z13.31 Jong Brito MD [address] [place] [phone] 05/18/2024 Jong Brito Blood tests for routine general physical examination Z00.00 ; Prostatism N40.0 and Testosterone deficiency E34.9 Jong Brito MD [address] [place], [place] [phone] 06/29/2024 Jong Brito MD [address] [place], [place] [phone] 10/23/2024 Jong Brito Persistent cough R05.3 ASSESSMENTS Encounter Date Diagnosis Assessment Notes Treatment Notes Treatment Clinical Notes 05/25/2024 Annual physical exam (ICD-10 - Z00.00) labs reviewed and discussed with patient 05/25/2024 Dysfunction of right rotator cuff (ICD-10 - M67.911) refer to ortho 05/18/2024 Prostatism (ICD-10 - N40.0) 05/18/2024 Blood tests for routine general physical examination (ICD-10 - Z00.00) 10/23/2024 Persistent cough (ICD-10 - R05.3) patient verbalized understanding of medicationand directions for use, pending diagnostic testing/ ORDER [facility] [place] [facility] AT PATIENT REQUEST 05/25/2024 Neuropathy (ICD-10 - G62.9) advised diet 05/18/2024 Testosterone deficiency (ICD-10 - E34.9) 05/25/2024 Prediabetes (ICD-10 - R73.03) advised to diet and exercise 05/25/2024 Prostatism (ICD-10 - N40.0) stable, will continue to monitor 05/25/2024 Colon cancer screening (ICD-10 - Z12.11) guaiac negative 05/25/2024 Encounter for screening for depression (ICD-10 - Z13.31) negative screen PLAN OF TREATMENT Pending Test Test Name Order Date CBC (INCLUDES DIFF/PLT) 05/11/2021 TSH (THYROID STIMULATING HORMONE) 2020 XR CHEST 2 VIEW PA & LAT 05/17/2022 XR CHEST 2 VIEW PA & LAT 10/23/2024 CT chest wo con 05/22/2022 Next Appt Details Provider Name:Jong johnson, 05/20/2025 08:00:00 AM, [address], [address], [place], [place], [phone], Provider Name:Jong johnson, 05/27/2025 02:30:00 PM, [address], [address], [place], [place], [phone], Insurance Providers Payer Name Payer Address Payer Phone Subscriber Number Group Number Insured Name Patient Relationship to Insured Coverage Start Date Coverage End Date [employer] [address] [place], [place] [id number] [phone] [id number] Ricky Ventura Self - patient is the insured MEDICAL (GENERAL) HISTORY Medical History History ICD Code [address] Raquel Pack - repeat 10 years colonoscopy and upper endo 02/2019 all negative
== END 2024-10-26 16:13 | disposition home or self-care (01) ==
LOC: HO.XRAY 16:12
PROVIDERS: PCP Internal Medicine; Visit Provider Internal Medicine
DX: R05.3 Chronic cough (principal)
CPT/HCPCS: 71046

== ENCOUNTER 2025-05-20 12:22 | Outpatient (REF) | payer BC, SELFPAY ==
--- OUTSIDE RECORDS SUMMARY | 2025-02-02 05:20 | XMS_ITS ---
Author Organization Jong Brito MD Address [address] [place] [address] [place] [phone] Care Team Providers Care Associate Professor Of Geology Name Role Phone Jong Brito Primary Care Provider [phone] REASON FOR VISIT RF Medications Medication SIG (Take, Route, Fr equency, Duration) Notes Start Date End Date Status Tamsulosin HCl 0.4 MG TAKE 2 CAPSULES ON CE DAILY Orally Once a day for 90 days Ac tive Encounters Encounter Location Date Provider Diagnosis Jong Brito MD [address] [place] [address] [address] [place] [phone] 02/02/2025 Jong Brito Plan Of Treatment Medication Medication Name Sig Start Date Stop Date Notes Tamsulosin HCl 0.4 MG TAKE 2 CAPSULES ON CE DAILY Orally Once a day for 90 days Next Appt Details Provider Name:Jong Arguello ier, 05/27/2025 02:30:00 PM, [address] [place] [address], [address], [place], [place], [phone], Progress Notes * Ricky VENTURA MDOB: 2 (64 yo M)Acc No.[id number]:02/02/2025 Patient: Artur CORONADORicky :1960 A ge:64 Y S ex:Male Address:[address] [place] [address], [id number] * Refills Refill Tamsulosin HCl Capsule, 0.4 MG, Orally, 180, TAKE 2 CAPSULES ONCE DAILY, Once a day, 90 days, Refills=3 * true * Date: Generated for Printi ng/Faxing/eTransmitting on: 0 05/20/2025 12:37 PM EDT
[2025-05-20 12:27] LABS: MANUAL DIFF FLAG NO
[2025-05-20 12:41] LABS: Appearance Urine Clear; Glucose Urine UA Negative (Negative); Hematocrit 41.2 % (42.0-52.0); Hemoglobin 14.1 g/dl (14.0-18.0); Imm Gran Abs Auto 0.03 X10*3/uL (0.00-0.03); Imm Gran Pct Auto 0.6 % (0.0-0.4); Lymphocytes Absolute Auto 1.8 X10*3/uL (1.2-4.9); Mean Corpuscular HGB Conc 34.2 g/dl (31.0-36.0); Mean Corpuscular Hemoglobin 31.2 pg (27.0-33.0); Mean Corpuscular Volume 91.2 fL (80.0-98.0); NRBC Abs Auto 0.000 X10*3/uL (0.0-0.012); NRBC Pct Auto 0.0 /100WBC (0.0-0.2); PH 5.5 (5.0-9.0); Platelet Count 220 X10*3/uL (160-400); Red Blood Count 4.52 X10*6/uL (4.60-5.80); Specific Gravity - Urine 1.025 (1.005-1.025); White Blood Count 5.0 X10*3/uL (4.8-10.8)
[2025-05-20 12:51] LABS: Alanine Aminotransferase 30 U/L (0-40); Albumin Level 4.4 g/dL (3.5-5.0); Alkaline Phosphatase 88 U/L (39-117); Anion Gap 11 (12-20); Aspartate Amino Transferase 33 U/L (5-37); Blood Urea Nitrogen 16 mg/dL (9-16); Calcium 8.6 mg/dL (8.4-10.2); Carbon Dioxide 26 mmol/L (22-29); Chloride 107 mmol/L (96-108); Cholesterol 190 mg/dL (<200); Estimated Glomerular Filt Rate > 60; HDL Cholesterol 46 mg/dL (>40); Potassium 3.9 mmol/L (3.3-5.1); Sodium 140 mmol/L (135-145); Total Protein 6.5 g/dL (6.5-8.0); Triglycerides 105 mg/dL (<150)
[2025-05-20 13:13] LABS: PSA,Total (Free>4and<10) 0.17 ng/mL (0.00-4.00)
[2025-05-25 07:23] LABS: Testosterone, Free 49.5 pg/mL (35.0-155.0)
== END 2025-05-20 12:23 | disposition home or self-care (01) ==
LOC: HO.LNP 12:22
PROVIDERS: Visit Provider Internal Medicine
DX: Z00.00 Encounter for general adult medical examination without abnormal findings (principal); N40.0 Benign prostatic hyperplasia without lower urinary tract symptoms; E34.9 Endocrine disorder, unspecified; Z12.5 Encounter for screening for malignant neoplasm of prostate
CPT/HCPCS: 80053; 80061; 81001; 84153; 84402; 84403; 85025